=== PATIENT | female | born 2000 | race Caucasian/White ===

== ENCOUNTER 2021-08-05 18:19 | Emergency (ER) | payer OTHER ==
[2021-08-05 20:09] LABS: BASOPHIL 0.8 % (0-2); EOSINOPHIL 0.8 % (0-5); HCT 38.5 % (37.0-47.0); HGB 12.9 g/dl (12.5-16.0); LYMPHOCYTE 29.8 % (15-48); MCH 31.5 pg (25.0-31.0); MCHC 33.5 g/dL (32.0-36.0); MCV 94.1 fL (78.0-100.0); MPV 11.5 fL (6.0-9.5); NEUTROPHIL 62.4 % (41-80); NRBC 0; PLT 270 K/uL (150-400); RBC 4.09 M/uL (4.20-5.40); RDW 12.1 % (11.5-14.0); WBC 6.6 K/uL (4.0-10.5)
[2021-08-05 20:18] LABS: ALBUMIN 4.2 g/dL (3.4-5.0); BILIRUBIN - TOTAL 0.2 mg/dL (0.2-1.0); BUN/CREAT RATIO (CALC) 10.8 RATIO; CREATININE 0.83 mg/dL (0.51-0.95); GLOBULIN (CALCULATION) 2.9 g/dL; POTASSIUM 3.7 mmol/L (3.5-5.1); TOTAL PROTEIN 7.1 g/dL (6.4-8.2)
[2021-08-06 01:06] LABS: INFLUENZA A NAA NEGATIVE (NEGATIVE)
[2021-08-06 01:08] LABS: CORONAVIRUS 2019 SARS-COV-2 POSITIVE (NEGATIVE)
[2021-08-06] MEDS ORDERED: CEFDINIR300 MG PO (02:36)
[2021-08-06] MEDS ORDERED: ATARAX25 MG PO (02:36)
== END 2021-08-06 02:51 | disposition home or self-care (01) ==
LOC: FER 18:19
PROVIDERS: Internal Medicine
DX: U07.1 COVID-19 (principal); M54.2 Cervicalgia; H66.92 Otitis media, unspecified, left ear; F41.9 Anxiety disorder, unspecified; F17.290 Nicotine dependence, other tobacco product, uncomplicated
CPT/HCPCS: 36415; 70450; 70490; 72125; 80053; 83605; 84145; 85025; J1885; U0002

== ENCOUNTER 2022-02-05 04:31 | Emergency (ER) | payer OTHER ==
[~2022-02-05 04:31] MED LIST: ATARAX25 MG PO; CEFDINIR300 MG PO
[2022-02-05 05:43] LABS: BASOPHIL 0.5 % (0-2); EOSINOPHIL 1.8 % (0-5); HCT 36.3 % (37.0-47.0); HGB 12.2 g/dl (12.5-16.0); LYMPHOCYTE 22.6 % (15-48); MCH 31.5 pg (25.0-31.0); MCHC 33.6 g/dL (32.0-36.0); MCV 93.8 fL (78.0-100.0); MONOCYTE 6.7 % (0-12); MPV 10.9 fL (6.0-9.5); NEUTROPHIL 68.1 % (41-80); NRBC 0; PLT 254 K/uL (150-400); RBC 3.87 M/uL (4.20-5.40); RDW 12.9 % (11.5-14.0); WBC 9.9 K/uL (4.0-10.5)
[2022-02-05 05:44] LABS: BILIRUBIN NEGATIVE (NEGATIVE); BLOOD NEGATIVE Ery/uL (NEGATIVE); CLARITY CLEAR (CLEAR); COLOR YELLOW (YELLOW); GLUCOSE (U) NORMAL (NORMAL); LEUKOCYTES NEGATIVE Leu/uL (NEGATIVE); NITRITE NEGATIVE (NEGATIVE); PROTEIN NEGATIVE (NEGATIVE); UROBILINOGEN 0.2 mg/dL (0.2-1.0)
[2022-02-05 05:52] LABS: URINARY WBC RARE
[2022-02-05 06:11] LABS: ALBUMIN 3.1 g/dL (3.4-5.0); BILIRUBIN - TOTAL 0.1 mg/dL (0.2-1.0); CREATININE 0.5 mg/dL (0.51-0.95); GLOBULIN (CALCULATION) 3.4 g/dL; POTASSIUM 3.6 mmol/L (3.5-5.1); TOTAL PROTEIN 6.5 g/dL (6.4-8.2)
[2022-02-05 06:26] LABS: CORONAVIRUS 2019 SARS-COV-2 NEGATIVE (NEGATIVE); INFLUENZA A NAA NEGATIVE (NEGATIVE)
== END 2022-02-05 07:42 | disposition home or self-care (01) ==
LOC: FER 04:31
PROVIDERS: Emergency Medicine
DX: O26.891 Other specified pregnancy related conditions, first trimester (principal); R10.31 Right lower quadrant pain; Z3A.16 16 weeks gestation of pregnancy; Z20.822 Contact with and (suspected) exposure to COVID-19; Z28.310 Unvaccinated for COVID-19
CPT/HCPCS: 36415; 80053; 81001; 85025; J2405; U0002